=== PATIENT | female | born 1995 | race Caucasian/White ===

== ENCOUNTER 2017-01-28 12:23 | Emergency (ER) | payer OTHER ==
--- NOTE | ~2017-01-28 | EKG ---
PATIENT: LISA POWELL UNIT #: [id number] Ventricular Rate: 58 BPM Atrial Rate: 58 BPM P-R Interval: 156 ms QRS Duration: 88 ms Q-T Interval: 386 ms QTC Calculation(Bezet): 378 ms P [place]: 40 degrees Calculated R [place]: 40 degrees Calculated T [place]: 33 degrees Diagnosis Line: Sinus bradycardia Diagnosis Line: Borderline ECG Diagnosis Line: Diagnosis Line: Confirmed by WAQAR SANDERSON MD ([id number]) on Diagnosis Line: 01/28/2017 10:28:42 PM INTERPRETING MD: MAGDA
--- NOTE | ~2017-01-28 | CR72 ---
[facility] A Service of [facility] & [facility] RADIOLOGY TEXT RESULTS PATIENT: LISA POWELL LOCATION: [facility] : [birth year] UNIT #: [id number] AGE: [address]: Neena Delarosa APRN SEX: F ORDER DR: [id number] [facility] [address] [place], [place] [address] [id number] E MR#: [id number] Acc #: [id number] NAME: LISA POWELL : 1995 SEX: F STUDY DATE/TIME: UNIT: [facility] ROOM: STUDY DESCRIPTION: CR Chest Single View Portable Attending Physician: Neena Delarosa A.P.R.N. Ordering Physician: Ed Doc Jeanne Crain Primary Care Physician: Primary Care Physician No MEDICAL IMAGING REPORT This report is preliminary unless electronic signature is present EXAM Chest portable 01/28/2017 1218 hours HISTORY 21-year-old woman complaining of left-sided chest pain and burning for a couple of days. COMPARISON 09/02/2015 FINDINGS Single portable upright view demonstrates normal cardiac, mediastinal and hilar contours. The pulmonary vascularity is normal. The lungs are well expanded and clear. There is no effusion, pneumothorax or bone lesion. IMPRESSION Normal upright portable chest. Dictated by... Merle Lloyd M.D. THIS IS AN ELECTRONICALLY VERIFIED REPORT Merle Lloyd M.D. at 01/28/2017 7:02 PM JAMES/ellis TD: 01/28/2017 14:42 JOB #: [id number] MEDICAL IMAGING REPORT Page 1 of 1 COPY
--- NOTE | ~2017-01-28 | CT16 ---
[facility] A Service [facility] RADIOLOGY TEXT RESULTS PATIENT: LISA POWELL LOCATION: [facility] : [birth year] UNIT #: [id number] AGE: [address]: Neena Delarosa APRN SEX: F ORDER DR: [id number] [id number] [facility] [place], [place] [address] [id number] E MR#: [id number] Acc #: [id number] NAME: LISA POWELL. : 1995 SEX: F STUDY DATE/TIME: 01/28/2017 14:23 UNIT: [facility] ROOM: STUDY DESCRIPTION: CT Angio Chest for PE Attending Physician: Neena Delarosa A.P.R.N. Ordering Physician: Gautam Bowen M.D. Primary Care Physician: No Primary Care Physician MEDICAL IMAGING REPORT This report is preliminary unless electronic signature is present EXAM CTA chest. INDICATION Chest pain and tightness for 2 days. Intermittent pain. [address] angiography of the chest utilizing 100 mL Isovue-370 IV contrast. Coronal 3-D MIP reconstructions and standard sagittal reconstructions were obtained. This CT exam was performed with one or more of the following radiation dose reduction techniques: automatic exposure control, adjustment of mA and/or kV according to patient size, and iterative reconstruction. COMPARISON Chest radiograph dated 01/28/2017, 09/02/2015. FINDINGS No pulmonary embolus. No thoracic aortic aneurysm or dissection. No pericardial or pleural effusion. Lungs are clear. Central airways are patent. Limited images of the upper abdomen were obtained. There are no acute findings. No acute osseous abnormalities. IMPRESSION 1. Negative for pulmonary embolus. 2. No acute findings in the chest. [facility] A Service [facility] RADIOLOGY TEXT RESULTS PATIENT: LISA POWELL LOCATION: [facility] : [birth year] UNIT #: [id number] AGE: [address]: Neena Delarosa APRN SEX: F ORDER DR: Dictated by... Leopoldo P. Lizandro, M.D. THIS IS AN ELECTRONICALLY VERIFIED REPORT Leopoldo Bone M.D. at 01/29/2017 9:04 AM REINALDO/cristin TD: 01/28/2017 17:11 JOB #: [id number] MEDICAL IMAGING REPORT Page 1 of 1 COPY
[2017-01-28 12:23] LABS: BASOPHIL% 0.6 % (0-2.5); EOSINOPHIL# 0.2 X10e3 (0-0.7); HEMATOCRIT 41.8 % (35.0-45.0); HEMOGLOBIN 13.6 gm/dL (12.0-16.0); LYMPHOCYTE# 2.7 X10e3 (1.0-3.5); LYMPHOCYTE% 36.8 % (17.0-45.0); MEAN CORPUSCULAR HEMOGLOBIN 29.8 PG (28-34); MEAN CORPUSCULAR HGB CONC 32.4 g/dL (30-36); MEAN PLATELET VOLUME 7.7 FL (6.5-11.5); MONOCYTE# 0.4 X10e3 (0-1.0); MONOCYTE% 5.5 % (3.0-12.0); NEUTROPHIL# 3.9 X10e3 (1.5-7.1); NEUTROPHIL% 54.1 % (40-75); PLATELET COUNT 417 X10e3 (140-420); RED BLOOD COUNT 4.55 X10e (3.90-5.30); RED CELL DISTRIBUTION WIDTH 13.2 % (11.0-15.5); WHITE BLOOD COUNT 7.3 X10e3 (4.0-10.5)
[~2017-01-28 12:23] MED LIST: CETIRIZINE HCL10 MG PO; FLONASE 0.05% N16 G1; GUAIFENESIN400 M1 PO; IBUPROFEN600 MG PO; NAPROSYN250 M1 PO
[2017-01-28 12:27] LABS: DIFF IND NO
[2017-01-28 13:01] LABS: ALBUMIN SERUM 3.9 g/dL (3.5-5.0); BILIRUBIN, DIRECT 0.1 mg/dL (0.0-0.2); BILIRUBIN,INDIRECT 0.3 mg/dL (0.0-0.9); BILIRUBIN,TOTAL 0.4 mg/dL (0.2-2.0); BUN/CREATININE RATIO 7.5; CALCIUM SERUM 9.2 mg/dL (8.4-10.2); CREATININE SERUM 0.8 mg/dL (0.6-1.4); POTASSIUM 4.5 mmol/L (3.5-5.1); PROTEIN TOTAL SERUM 6.9 g/dL (6.0-8.3)
[2017-01-28 13:11] LABS: POC - CKMB 1.1 ng/mL (0.0-7.9); POC - TROPONIN <0.05 ng/mL (<=0.05)
[2017-01-28 15:23] LABS: POC - CKMB <1.0 ng/mL (0.0-7.9); POC - TROPONIN <0.05 ng/mL (<=0.05)
== END 2017-01-28 15:56 | disposition home or self-care (01) ==
LOC: CED 12:23
PROVIDERS: Nurse Practitioner
DX: R07.89 Other chest pain (principal); R00.1 Bradycardia, unspecified; Z87.891 Personal history of nicotine dependence; Z88.5 Allergy status to narcotic agent
CPT/HCPCS: 36415; 71010; 71275; 80048; 80076; 82553; 84484; 84703; 85025; 93005; 99284; Q9967

== ENCOUNTER 2017-04-04 15:26 | Emergency (ER) | payer OTHER | END 2017-04-04 17:47 | disposition home or self-care (01) | LOC: CED 15:26 → CFTX 15:26 | DX: L03.115 Cellulitis of right lower limb (principal); L02.415 Cutaneous abscess of right lower limb; F17.210 Nicotine dependence, cigarettes, uncomplicated; Z88.5 Allergy status to narcotic agent | CPT/HCPCS: 99282 ==